=== PATIENT | female | born 1995 | race American Indian/Alaskan Native ===

== ENCOUNTER 2018-12-21 03:41 | Emergency (ER) | payer OTHER ==
[2018-12-21 04:26] LABS: Alanine Aminotransferase 17 units/L (7-56); Albumin 4.8 g/dL (3.9-5); BUN/Creatinine Ratio 13; Blood Urea Nitrogen 8 mg/dL (7-17); Calcium 9.7 mg/dL (8.4-10.2); Hemolysis Index 1
[2018-12-21 05:04] LABS: Hematocrit 38.8 % (30.3-42.9); Hemoglobin 13.3 gm/dl (10.1-14.3); Lymphocytes % (Auto) 28.3 % (13.4-35.0); Mean Corpuscular HGB Conc 34 % (30-34); Mean Corpuscular Volume 95 fl (79-97); Mean Platelet Volume 9.2 fl (6-12); Platelet Count 250 K/mm3 (140-440); Red Blood Count 4.07 M/mm3 (3.65-5.03); Red Cell Distribution Width 12.5 % (13.2-15.2)
[2018-12-21 05:05] LABS: Basophils # (Auto) 0.1 K/mm3 (0.0-0.1); Basophils % (Auto) 0.6 % (0.0-1.8); Eosinophils # (Auto) 3.1 K/mm3 (0.0-0.4); Eosinophils % (Auto) 3.1 % (0.0-4.3); Lymphocytes # (Auto) 2.3 K/mm3 (1.2-5.4); Monocytes # (Auto) 0.7 K/mm3 (0.0-0.8); Monocytes % (Auto) 8.9 % (0.0-7.3)
[2018-12-21 05:15] LABS: Bacteria,Urine 1+ /HPF (Negative); Bilirubin,Urine NEG (Negative); Blood,Urine SM (Negative); Color,Urine Yellow (Yellow); Mucus,Urine FEW /HPF; Protein,Urine <15 mg/dL mg/dL (Negative); Urobilinogen,Urine < 2.0 mg/dL (<2.0)
[2018-12-21] MEDS ORDERED: ZOFRAN ODT PO ONE ×2 (07:50→09:32)
--- NOTE | 2018-12-21 07:50 | Emergency Department Report ---
ED Abdominal Pain HPI - General Chief Complaint: Abdominal Pain Stated Complaint: BODY PAIN,ABD PAIN,NAUSEA Time Seen by Provider: 12/21/18 07:27 Source: patient Mode of arrival: Ambulatory Limitations: No Limitations - History of Present Illness Initial Comments: 23 yo female comes to ER with abrupt onset N/V last night. No vomiting in the ER for now 4 hours. She had diarrhea x 1. VSS. Also co l flank pain. No vag bleed or dc. Has taken nothing at home. Has had nothing like this before. PMH NONE PSH NONE HOME RX NONE POS THC MD Complaint: abdominal pain -: Sudden - Related Data Previous Rx's Medication Instructions Recorded Last Taken Type Ondansetron [Zofran Odt] 4 mg PO Q8HR PRN #10 tab.rapdis 12/21/18 Unknown Rx Allergies Allergy/AdvReac Type Severity Reaction Status Date / Time cucumber Allergy Unknown Verified 12/21/18 03:44 ED Review of Systems ROS: Stated complaint: BODY PAIN,ABD PAIN,NAUSEA Other details as noted in HPI Comment: All other systems reviewed and negative ED Past Medical Hx - Past Medical History Previous Medical History?: No - Surgical History Past Surgical History?: No - Family History Family history: no significant - Social History Smoking Status: Current Some Day Smoker Substance Use Type: Alcohol, Marijuana - Medications Home Medications: Home Medications Medication Instructions Recorded Confirmed Last Taken Type Ondansetron [Zofran Odt] 4 mg PO Q8HR PRN #10 tab.rapdis 12/21/18 Unknown Rx ED Physical Exam - General Limitations: No Limitations General appearance: alert - Head Head exam: Present: normocephalic - Eye Eye exam: Present: PERRL - ENT ENT exam: Present: normal exam - Neck Neck exam: Present: normal inspection - Respiratory Respiratory exam: Present: normal lung sounds bilaterally. Absent: respiratory distress - Cardiovascular Cardiovascular Exam: Present: regular rate - GI/Abdominal GI/Abdominal exam: Present: soft, normal bowel sounds. Absent: distended, tenderness, guarding, rebound, rigid, diminished bowel sounds, hyperactive bowel sounds, hypoactive bowel sounds - Rectal Rectal exam: Present: deferred - Extremities Exam Extremities exam: Present: normal inspection - Back Exam Back exam: Present: normal inspection, full ROM - Neurological Exam Neurological exam: Present: alert, oriented X3, CN II-XII intact, normal gait - Psychiatric Psychiatric exam: Present: normal affect, normal mood - Skin Skin exam: Present: warm, dry, intact ED Course Vital Signs 12/21/18 03:46 Temperature 97.6 F Pulse Rate 69 Respiratory 16 Rate Blood Pressure 120/80 O2 Sat by Pulse 100 Oximetry ED Medical Decision Making - Lab Data Result diagrams: 12/21/18 03:54 12/21/18 03:54 - Medical Decision Making Labs 12/21/18 12/21/18 12/21/18 03:54 03:54 03:54 WBC 8.2 RBC 4.07 Hgb 13.3 Hct 38.8 MCV 95 MCH 33 H MCHC 34 RDW 12.5 L Plt Count 250 Lymph % (Auto) 28.3 [place] % (Auto) 8.9 H Eos % (Auto) 3.1 Baso % (Auto) 0.6 Lymph # 2.3 [place] # 0.7 Eos # 3.1 H Baso # 0.1 Seg Neutrophils % 59.1 Seg Neutrophils # 4.9 Sodium 141 Potassium 3.4 L Chloride 101.3 Carbon Dioxide 24 Anion Gap 19 BUN 8 Creatinine 0.6 L Estimated GFR > 60 BUN/Creatinine Ratio 13 Glucose 103 H Calcium 9.7 Total Bilirubin 1.90 H AST 24 ALT 17 Alkaline Phosphatase 61 Total Protein 8.4 H Albumin 4.8 Albumin/Globulin Ratio 1.3 HCG, Qual Negative Urine Color Urine Turbidity Urine pH Ur Specific [place] Urine Protein Urine Glucose (UA) Urine Ketones Urine Blood Urine Nitrite Urine Bilirubin Urine Urobilinogen Ur Leukocyte Esterase Urine WBC (Auto) Urine RBC (Auto) U Epithel Cells (Auto) Urine Bacteria (Auto) Urine Mucus 12/21/18 04:27 WBC RBC Hgb Hct MCV MCH MCHC RDW Plt Count Lymph % (Auto) [place] % (Auto) Eos % (Auto) Baso % (Auto) Lymph # [place] # Eos # Baso # Seg Neutrophils % Seg Neutrophils # Sodium Potassium Chloride Carbon Dioxide Anion Gap BUN Creatinine Estimated GFR BUN/Creatinine Ratio Glucose Calcium Total Bilirubin AST ALT Alkaline Phosphatase Total Protein Albumin Albumin/Globulin Ratio HCG, Qual Urine Color Yellow Urine Turbidity Clear Urine pH 6.0 Ur Specific [place] 1.009 Urine Protein <15 mg/dl Urine Glucose (UA) Neg Urine Ketones 20 Urine Blood Sm Urine Nitrite Neg Urine Bilirubin Neg Urine Urobilinogen < 2.0 Ur Leukocyte Esterase Tr Urine WBC (Auto) 5.0 Urine RBC (Auto) 3.0 U Epithel Cells (Auto) 6.0 Urine Bacteria (Auto) 1+ Urine Mucus Few Vital Signs 12/21/18 03:46 Temperature 97.6 F Pulse Rate 69 Respiratory 16 Rate Blood Pressure 120/80 O2 Sat by Pulse 100 Oximetry ua noted upreg neg labs noted exam unremarkable no vomiting in ER Medicated for nausea. K replaced. PT TAKING PO, ambulatory and non toxic. WILL DC HOME WITH PCP FOLLOW UP. Pt verbalizes understanding of discharge plan of care. - Differential Diagnosis ro uti/preg/nathan./gastroenteritis/thc induced Critical care attestation.: If time is entered above; I have spent that time in minutes in the direct care of this critically ill patient, excluding procedure time. ED Disposition Clinical Impression: Nausea & vomiting, Hypokalemia Disposition: DC-01 TO HOME OR SELFCARE Is pt being admited?: No Does the pt Need Aspirin: No Condition: Stable Instructions: Acute Nausea and Vomiting (ED) Additional Instructions: diet as tolerated start bland and progress eat bananas today- they have potassium in them; and your blood potassium was low. hydrate well with water motrin or tylenol for pain med as ordered today follow up with pcp referral below avoid weed Prescriptions: Ondansetron [Zofran Odt] 4 mg PO Q8HR PRN #10 tab.rapdis PRN Reason: Vomiting Referrals: KAYLYN DAVIS MD [Primary Care Provider] - 3-5 Days KRISTINA MORALES MD [Staff Physician] - 3-5 Days Time of Disposition: 08:13
[2018-12-21] MEDS ORDERED: K-DUR PO ONE (07:59)
[2018-12-21] MEDS ORDERED: NACL 0.9% 1000 ML 1,000 ML IV ONE (08:16)
[2018-12-21 09:18] VITALS: BP 114/64
[2018-12-21] MEDS ORDERED: NORCO 5/325 PO ONE (09:33)
== END 2018-12-21 10:20 | disposition home or self-care (01) ==
LOC: ED 03:41
DX: E87.6 Hypokalemia (principal); F17.200 Nicotine dependence, unspecified, uncomplicated; F12.10 Cannabis abuse, uncomplicated; Z91.018 Allergy to other foods
CPT/HCPCS: 36415; 80053; 81001; 83690; 84703; 85025; 96360; 99283; J7030; Q0162

== ENCOUNTER 2019-02-01 00:14 | Emergency (ER) | payer SELFPAY ==
[2019-02-01 01:01] VITALS: BP 119/69
[2019-02-01] MEDS ORDERED: TYLENOL ONE (01:04)
[2019-02-01] MEDS ORDERED: ZOFRAN ODT ONE (01:04)
[2019-02-01] MEDS ORDERED: ZOFRAN ODT PO ONE (01:13)
[2019-02-01] MEDS ORDERED: TYLENOL PO ONE (01:14)
[2019-02-01 01:26] LABS: Basophils # (Auto) 0.1 K/mm3 (0.0-0.1); Basophils % (Auto) 0.4 % (0.0-1.8); Eosinophils # (Auto) 0.1 K/mm3 (0.0-0.4); Eosinophils % (Auto) 0.7 % (0.0-4.3); Hematocrit 40.4 % (30.3-42.9); Hemoglobin 13.6 gm/dl (10.1-14.3); Lymphocytes # (Auto) 1.1 K/mm3 (1.2-5.4); Lymphocytes % (Auto) 8.1 % (13.4-35.0); Mean Corpuscular HGB Conc 34 % (30-34); Mean Corpuscular Volume 96 fl (79-97); Monocytes # (Auto) 0.5 K/mm3 (0.0-0.8); Monocytes % (Auto) 3.7 % (0.0-7.3); Platelet Count 218 K/mm3 (140-440); Red Blood Count 4.24 M/mm3 (3.65-5.03); Red Cell Distribution Width 12.2 % (13.2-15.2)
[2019-02-01 01:50] LABS: Alanine Aminotransferase 8 units/L (7-56); Albumin 4.7 g/dL (3.9-5); BUN/Creatinine Ratio 16; Blood Urea Nitrogen 8 mg/dL (7-17); Calcium 9.8 mg/dL (8.4-10.2); Hemolysis Index 9
[2019-02-01 04:07] LABS: Bacteria,Urine 1+ /HPF (Negative); Bilirubin,Urine NEG (Negative); Blood,Urine NEG (Negative); Color,Urine Yellow (Yellow); Mucus,Urine 3+ /HPF
[2019-02-01] MEDS ORDERED: ZOFRAN IV ONE (04:51)
[2019-02-01] MEDS ORDERED: BENTYL IM ONE (04:51)
[2019-02-01] MEDS ORDERED: NACL 0.9% 1000 ML 1,000 ML IV ONE (04:51)
[2019-02-01] MEDS ORDERED: TORADOL IV ONE (04:51)
--- NOTE | 2019-02-01 06:33 | Cat Scan Report ---
CT abdomen pelvis wo con INDICATION: abd pain. TECHNIQUE: All CT scans at this location are performed using the following dose modulation technique: Automated exposure control. Helical slices were obtained through the abdomen and pelvis. No contrast was admini stered. COMPARISON: None available. FINDINGS: Abdomen: The lung bases are clear. Liver, spleen, pancreas, adrenal glands, and kidneys are unremarka ble. The aorta is normal in diameter. There is no obstruction, inflammation, or free air. There are n o abnormal fluid collections. Pelvis: The appendix is unremarkable. There is a small amount of free fluid in the dependent portion of the pelvis. Bowel is unremarkable. On review of bone windows, no acute osseous abnormalities are seen area IMPRESSION: 1. There is no obstruction, inflammation, or free air. There are no abnormal fluid collections. Signer Name: Zion Santana MD Signed: 02/01/2019 6:29 AM Workstation Name: [id number]
--- NOTE | 2019-02-01 06:40 | Emergency Department Report ---
ED Abdominal Pain HPI - General Chief Complaint: Nausea/Vomiting/Diarrhea Stated Complaint: NVD, SHARP SHOULDER PAIN Time Seen by Provider: 02/01/19 04:50 Source: patient Mode of arrival: Ambulatory Limitations: No Limitations - History of Present Illness Initial Comments: pt is a 23 y/o aaf who present for abd pain with n/v/d 4 days pt states subjective fever no fever noted in triage today, symptom are exacerbated by eating symptsoms are relieved by nothing last n/v this am, last po intake this am pain level is 3/10 at this time. MD Complaint: abdominal pain Onset/Timin -: days(s) Location: LLQ, RLQ Radiation: LLQ, RLQ Migration to: LLQ Severity scale (0 -10): 4 Quality: cramping, aching Consistency: intermittent Improves With: nothing Worsens With: eating Associated Symptoms: nausea, vomiting, diarrhea, fever. denies: chills, dysuria , melena, hematuria - Related Data LMP Date: 01/15/19 Previous Rx's Medication Instructions Recorded Last Taken Type Ondansetron [Zofran Odt] 4 mg PO Q8HR PRN #10 tab.rapdis 12/21/18 Unknown Rx Dicyclomine [Bentyl] 10 mg PO QID PRN #40 capsule 02/01/19 Unknown Rx Ondansetron [Zofran Odt] 4 mg PO Q8HR #12 tab.rapdis 02/01/19 Unknown Rx cephALEXin [Keflex] 500 mg PO Q12HR 7 Days #14 cap 02/01/19 Unknown Rx Allergies Allergy/AdvReac Type Severity Reaction Status Date / Time cucumber Allergy Unknown Verified 12/21/18 03:44 ED Review of Systems ROS: Stated complaint: NVD, SHARP SHOULDER PAIN Other details as noted in HPI Constitutional: chills, fever Eyes: denies: eye pain, eye discharge, vision change ENT: as per HPI Respiratory: denies: cough, shortness of breath, wheezing Cardiovascular: denies: chest pain, palpitations Endocrine: no symptoms reported Gastrointestinal: abdominal pain, nausea, vomiting, diarrhea. denies: constipation, hematemesis, melena, hematochezia Genitourinary: denies: urgency, dysuria, frequency, hematuria, discharge, dyspareunia Musculoskeletal: as per HPI. denies: back pain Skin: denies: rash, lesions Neurological: denies: headache, weakness, paresthesias Psychiatric: denies: anxiety, depression Hematological/Lymphatic: denies: easy bleeding, easy bruising ED Past Medical Hx - Past Medical History Previous Medical History?: No - Social History Smoking Status: Never Smoker - Medications Home Medications: Home Medications Medication Instructions Recorded Confirmed Last Taken Type Ondansetron [Zofran Odt] 4 mg PO Q8HR PRN #10 tab.rapdis 12/21/18 Unknown Rx Dicyclomine [Bentyl] 10 mg PO QID PRN #40 capsule 02/01/19 Unknown Rx Ondansetron [Zofran Odt] 4 mg PO Q8HR #12 tab.rapdis 02/01/19 Unknown Rx cephALEXin [Keflex] 500 mg PO Q12HR 7 Days #14 cap 02/01/19 Unknown Rx ED Physical Exam - General Limitations: No Limitations General appearance: alert, in no apparent distress - Head Head exam: Present: atraumatic, normocephalic - Eye Eye exam: Present: normal appearance, PERRL, EOMI Pupils: Present: normal accommodation - ENT ENT exam: Present: normal orophraynx, mucous membranes moist - Neck Neck exam: Present: normal inspection, full ROM. Absent: tenderness, lymphadenopathy - Respiratory Respiratory exam: Present: normal lung sounds bilaterally. Absent: respiratory distress, wheezes, stridor, chest wall tenderness - Cardiovascular Cardiovascular Exam: Present: regular rate, normal rhythm, normal heart sounds. Absent: systolic murmur, diastolic murmur, rubs, gallop - GI/Abdominal GI/Abdominal exam: Present: soft, normal bowel sounds. Absent: distended, tenderness, guarding, rebound, rigid, bruit, hernia - Rectal Rectal exam: Present: deferred - Extremities Exam Extremities exam: Present: normal inspection, full ROM, normal capillary refill. Absent: tenderness - Back Exam Back exam: Present: normal inspection, full ROM. Absent: tenderness, CVA tenderness (R), CVA tenderness (L), muscle spasm, paraspinal tenderness, rash noted - Neurological Exam Neurological exam: Present: alert, oriented X3, CN II-XII intact, normal gait - Psychiatric Psychiatric exam: Present: normal affect, normal mood - Skin Skin exam: Present: warm, dry, intact, normal color. Absent: rash ED Course Vital Signs 02/01/19 00:55 Temperature 98.3 F Pulse Rate 66 Respiratory 18 Rate Blood Pressure 119/69 O2 Sat by Pulse 98 Oximetry ED Medical Decision Making - Lab Data Result diagrams: 02/01/19 01:03 02/01/19 01:03 Labs 02/01/19 02/01/19 02/01/19 01:03 01:03 01:03 WBC 14.2 H RBC 4.24 Hgb 13.6 Hct 40.4 MCV 96 MCH 32 MCHC 34 RDW 12.2 L Plt Count 218 Lymph % (Auto) 8.1 L [place] % (Auto) 3.7 Eos % (Auto) 0.7 Baso % (Auto) 0.4 Lymph # 1.1 L [place] # 0.5 Eos # 0.1 Baso # 0.1 Seg Neutrophils % 87.1 H Seg Neutrophils # 12.4 H Sodium 142 Potassium 3.7 Chloride 102.5 Carbon Dioxide 26 Anion Gap 17 BUN 8 Creatinine 0.5 L Estimated GFR > 60 BUN/Creatinine Ratio 16 Glucose 96 Calcium 9.8 Total Bilirubin 1.60 H AST 16 ALT 8 Alkaline Phosphatase 55 Total Protein 8.1 Albumin 4.7 Albumin/Globulin Ratio 1.4 Lipase HCG, Quant < 2 Urine Color Urine Turbidity Urine pH Ur Specific [place] Urine Protein Urine Glucose (UA) Urine Ketones Urine Blood Urine Nitrite Urine Bilirubin Urine Urobilinogen Ur Leukocyte Esterase Urine WBC (Auto) Urine RBC (Auto) U Epithel Cells (Auto) Urine Bacteria (Auto) Urine Mucus 02/01/19 02/01/19 03:38 05:15 WBC RBC Hgb Hct MCV MCH MCHC RDW Plt Count Lymph % (Auto) [place] % (Auto) Eos % (Auto) Baso % (Auto) Lymph # [place] # Eos # Baso # Seg Neutrophils % Seg Neutrophils # Sodium Potassium Chloride Carbon Dioxide Anion Gap BUN Creatinine Estimated GFR BUN/Creatinine Ratio Glucose Calcium Total Bilirubin AST ALT Alkaline Phosphatase Total Protein Albumin Albumin/Globulin Ratio Lipase 12 L HCG, Quant Urine Color Yellow Urine Turbidity Slightly-cloudy Urine pH 6.0 Ur Specific [place] 1.026 Urine Protein 30 mg/dl Urine Glucose (UA) Neg Urine Ketones 80 Urine Blood Neg Urine Nitrite Neg Urine Bilirubin Neg Urine Urobilinogen 2.0 Ur Leukocyte Esterase Neg Urine WBC (Auto) 4.0 Urine RBC (Auto) 12.0 U Epithel Cells (Auto) 11.0 Urine Bacteria (Auto) 1+ Urine Mucus 3+ - Radiology Data Radiology results: report reviewed, image reviewed Ordering Physician: KRIS MADSEN NP Date of Service: 02/01/19 Procedure(s): CT abdomen pelvis wo con Accession Number(s): [id number] cc: KRIS MADSEN NP CT abdomen pelvis wo con INDICATION: abd pain. TECHNIQUE: All CT scans at this location are performed using the following dose modulation technique: Automated exposure control. Helical slices were obtained through the abdomen and pelvis. No contrast was administered. COMPARISON: None available. FINDINGS: Abdomen: The lung bases are clear. Liver, spleen, pancreas, adrenal glands, and kidneys are unremarkable. The aorta is normal in diameter. There is no obstruction, inflammation, or free air. There are no abnormal fluid collections. Pelvis: The appendix is unremarkable. There is a small amount of free fluid in t he dependent portion of the pelvis. Bowel is unremarkable. On review of bone windows, no acute osseous abnormalities are seen area IMPRESSION: 1. There is no obstruction, inflammation, or free air. There are no abnormal fluid collections. Signer Name: Zion Santana MD Signed: 02/01/2019 6:29 AM Workstation Name: [id number] Transcribed By: SS Dictated By: Zion Santana MD Electronically Authenticated By: Zion Santana MD Signed Date/Time: 02/01/19628 DD/ 3 TD/TT: - Medical Decision Making symptoms are improved with medications given in ed, there is no fever, wbc: 14.1 like related to volume status, sosa jung, follow up with pcp in 2-3 days retun to emergency if symptoms worsen. pt verbalized agreement and understanding of same. Critical care attestation.: If time is entered above; I have spent that time in minutes in the direct care of this critically ill patient, excluding procedure time. ED Disposition Clinical Impression: Abdominal pain Qualifiers: Abdominal location: lower abdomen, unspecified Qualified Code(s): R10.30 - Lower abdominal pain, unspecified Nausea and vomiting Qualifiers: Vomiting type: unspecified Vomiting Intractability: non-intractable Qualified Code(s): R11.2 - Nausea with vomiting, unspecified Disposition: DC- TO HOME OR SELFCARE Is pt being admited?: No Does the pt Need Aspirin: No Condition: Stable Instructions: Acute Nausea and Vomiting (ED), Dehydration (ED) Prescriptions: Dicyclomine [Bentyl] 10 mg PO QID PRN #40 capsule PRN Reason: abdominal spasm cephALEXin [Keflex] 500 mg PO Q12HR 7 Days #14 cap Ondansetron [Zofran Odt] 4 mg PO Q8HR #12 tab.yashdis Referrals: [facility] [Outside] - 3-5 Days Forms: Work/School Release Form(ED) Time of Disposition: 06:52
== END 2019-02-01 07:04 | disposition home or self-care (01) ==
LOC: ED 00:14
DX: R10.32 Left lower quadrant pain (principal); R10.31 Right lower quadrant pain; R11.2 Nausea with vomiting, unspecified; Z79.899 Other long term (current) drug therapy; Z91.018 Allergy to other foods
CPT/HCPCS: 36415; 74176; 80053; 81001; 83690; 84702; 85025; 96361; 96372; 96374; 96375; 99284; J0500; J1885; J2405; J7030; Q0162

== ENCOUNTER 2019-03-30 23:43 | Emergency (ER) | payer SELFPAY ==
[2019-03-31 00:21] VITALS: BP 112/74
[2019-03-31 00:38] LABS: Basophils # (Auto) 0.1 K/mm3 (0.0-0.1); Basophils % (Auto) 0.5 % (0.0-1.8); Eosinophils # (Auto) 0.1 K/mm3 (0.0-0.4); Eosinophils % (Auto) 0.4 % (0.0-4.3); Lymphocytes # (Auto) 1.8 K/mm3 (1.2-5.4); Lymphocytes % (Auto) 13.7 % (13.4-35.0); Mean Corpuscular HGB Conc 33 % (30-34); Mean Corpuscular Volume 95 fl (79-97); Monocytes # (Auto) 0.9 K/mm3 (0.0-0.8); Monocytes % (Auto) 6.8 % (0.0-7.3)
[2019-03-31 00:56] LABS: BUN/Creatinine Ratio 15; Blood Urea Nitrogen 9 mg/dL (7-17); Calcium 9.8 mg/dL (8.4-10.2); Hemolysis Index 11
[2019-03-31 00:59] LABS: Platelet Count 219 K/mm3 (140-440)
[2019-03-31] MEDS ORDERED: SODIUM CHLORIDE 0.9% 1000 ML 1,000 ML IV ONE (01:08)
--- NOTE | 2019-03-31 01:09 | Emergency Department Report ---
ED General Adult HPI - General Chief complaint: Dizziness Stated complaint: N,V, BACK PAIN, DIZZINESS Time Seen by Provider: 03/31/19 00:59 Source: patient Mode of arrival: Ambulatory Limitations: No Limitations - History of Present Illness Initial comments: Ms Hall is a 23 y/o aaf who presents for recurring constipation. Feels dizziness with n/v for past 3 days. Last BM today , scant amount firm. pt also endorse daily THC use. There is no fever or chills , last n/v this am, pt is tolerating po intake at this time. There is no cp , no sob, back pain, LMP: 2 weeks ago. pt denies pos for no sexually active with males. smptoms currently rated as 4/10 Onset/Timin -: days(s) Location: abdomen Radiation: non-radiation Severity scale (0 -10): 4 Quality: aching Consistency: intermittent Improves with: rest Worsens with: movement Associated Symptoms: nausea/vomiting Treatments Prior to Arrival: none - Related Data Previous Rx's Medication Instructions Recorded Last Taken Type Ondansetron [Zofran Odt] 4 mg PO Q8HR PRN #10 tab.rapdis 12/21/18 Unknown Rx Dicyclomine [Bentyl] 10 mg PO QID PRN #40 capsule 02/01/19 Unknown Rx Ondansetron [Zofran Odt] 4 mg PO Q8HR #12 tab.rapdis 02/01/19 Unknown Rx cephALEXin [Keflex] 500 mg PO Q12HR 7 Days #14 cap 02/01/19 Unknown Rx Bisacodyl [Dulcolax suppos] 10 mg AL ONCE PRN #5 supp.rect 03/31/19 Unknown Rx Polyethylene Glycol 3350 [Miralax 17 gm PO BID PRN #14 packet 03/31/19 Unknown Rx 3350] Allergies Allergy/AdvReac Type Severity Reaction Status Date / Time cucumber Allergy Unknown Verified 12/21/18 03:44 ED Review of Systems ROS: Stated complaint: N,V, BACK PAIN, DIZZINESS Other details as noted in HPI Constitutional: denies: chills, fever Eyes: denies: eye pain, eye discharge, vision change ENT: denies: ear pain, throat pain Respiratory: denies: cough, shortness of breath, wheezing Cardiovascular: denies: chest pain, palpitations Endocrine: no symptoms reported Gastrointestinal: abdominal pain, nausea, vomiting, constipation Genitourinary: denies: urgency, dysuria, discharge Musculoskeletal: denies: back pain, joint swelling, arthralgia Skin: denies: rash, lesions Neurological: denies: headache, weakness, numbness, paresthesias, confusion, vertigo Psychiatric: as per HPI Hematological/Lymphatic: denies: easy bleeding, easy bruising ED Past Medical Hx - Past Medical History Previous Medical History?: No - Surgical History Past Surgical History?: Yes Additional Surgical History: Left ear - Social History Smoking Status: Never Smoker Substance Use Type: Marijuana - Medications Home Medications: Home Medications Medication Instructions Recorded Confirmed Last Taken Type Ondansetron [Zofran Odt] 4 mg PO Q8HR PRN #10 tab.rapdis 12/21/18 Unknown Rx Dicyclomine [Bentyl] 10 mg PO QID PRN #40 capsule 02/01/19 Unknown Rx Ondansetron [Zofran Odt] 4 mg PO Q8HR #12 tab.rapdis 02/01/19 Unknown Rx cephALEXin [Keflex] 500 mg PO Q12HR 7 Days #14 cap 02/01/19 Unknown Rx Bisacodyl [Dulcolax suppos] 10 mg AL ONCE PRN #5 supp.rect 03/31/19 Unknown Rx Polyethylene Glycol 3350 [Miralax 17 gm PO BID PRN #14 packet 03/31/19 Unknown Rx 3350] ED Physical Exam - General Limitations: No Limitations General appearance: alert, in no apparent distress - Head Head exam: Present: atraumatic, normocephalic - Eye Eye exam: Present: normal appearance, PERRL, EOMI Pupils: Present: normal accommodation - ENT ENT exam: Present: normal orophraynx, mucous membranes moist, TM's normal bilaterally, normal external ear exam - Neck Neck exam: Present: normal inspection, full ROM. Absent: tenderness - Respiratory Respiratory exam: Present: normal lung sounds bilaterally. Absent: respiratory distress, wheezes, stridor, chest wall tenderness - Cardiovascular Cardiovascular Exam: Present: regular rate, normal rhythm, normal heart sounds. Absent: systolic murmur, diastolic murmur, rubs, gallop - GI/Abdominal GI/Abdominal exam: Present: soft, tenderness (bilat lower abd ), normal bowel sounds. Absent: distended, guarding, rebound, rigid, bruit, hernia - Rectal Rectal exam: Present: deferred - Extremities Exam Extremities exam: Present: normal inspection, full ROM. Absent: tenderness - Back Exam Back exam: Present: normal inspection, full ROM, tenderness, CVA tenderness (R). Absent: CVA tenderness (L), muscle spasm, paraspinal tenderness, vertebral tenderness, rash noted - Neurological Exam Neurological exam: Present: alert, oriented X3, CN II-XII intact, normal gait - Psychiatric Psychiatric exam: Present: normal affect, normal mood - Skin Skin exam: Present: warm, dry, intact, normal color. Absent: rash ED Course Vital Signs 03/31/19 00:12 Temperature 99.1 F Pulse Rate 89 Respiratory 18 Rate Blood Pressure 112/74 O2 Sat by Pulse 99 Oximetry ED Medical Decision Making - Lab Data Result diagrams: 03/31/19 00:24 03/31/19 00:24 - Radiology Data Radiology results: report reviewed, image reviewed Ordering Physician: KRIS MADSEN NP Date of Service: 03/31/19 Procedure(s): XR abdomen 1V ap Accession Number(s): [id number] cc: KRIS MADSEN NP Fluoro Time In Minutes: ABDOMEN 1 VIEW(S) INDICATION: abd pain COMPARISON: Prior CT abdomen/pelvis, 02/01/2019 FINDINGS: Bowel gas pattern: Within normal limits. No dilated loops of large or small b owel. Free air: None. Calcified gallstones: None seen. Calcified urinary tract calculi: None seen. Additional Findings: None. Skeletal structures: No acute abnormality. IMPRESSION: 1. No acute findings. Signer Name: Maureen Ballard MD Signed: 03/31/2019 1:38 AM Workstation Name: [id number] Transcribed By: JR Dictated By: Maureen Ballard MD Electronically Authenticated By: Maureen Ballard MD Signed Date/Time: 03/31/19137 DD/ 6 TD/TT: - Medical Decision Making all labs normal, plan: miralax prn, dulcolax prn, stop thc abuse, follow up with pcp as needed , pt verbalized agreement and understanding of same. pt dc'd to home in stable condition at this time. Critical care attestation.: If time is entered above; I have spent that time in minutes in the direct care of this critically ill patient, excluding procedure time. ED Disposition Clinical Impression: Abdominal pain Qualifiers: Abdominal location: lower abdomen, unspecified Qualified Code(s): R10.30 - Lower abdominal pain, unspecified Constipation Qualifiers: Constipation type: unspecified constipation type Qualified Code(s): K59.00 - Constipation, unspecified Disposition: TO HOME OR SELFCARE Is pt being admited?: No Does the pt Need Aspirin: No Condition: Stable Instructions: Constipation (ED), High Fiber Diet (ED), Cannabis Abuse (ED) Prescriptions: Bisacodyl [Dulcolax suppos] 10 mg AL ONCE PRN #5 supp.rect PRN Reason: constipation Polyethylene Glycol 3350 [Miralax 3350] 17 gm PO BID PRN #14 packet PRN Reason: Constipation Referrals: [facility] [Provider Group] - 3-5 Days URDDY PARKINSON MD [Staff Physician] - 3-5 Days Forms: Work/School Release Form(ED) Time of Disposition: 03:10
--- NOTE | 2019-03-31 01:42 | XRay Report ---
ABDOMEN 1 VIEW(S) INDICATION: abd pain COMPARISON: Prior CT abdomen/pelvis, 02/01/2019 FINDINGS: Bowel gas pattern: Within normal limits. No dilated loops of large or small bowel. Free air: None. Calcified gallstones: None seen. Calcified urinary tract calculi: None seen. Additional Findings: None. Skeletal structures: No acute abnormality. IMPRESSION: 1. No acute findings. Signer Name: Maureen Ballard MD Signed: 03/31/2019 1:38 AM Workstation Name: [id number]
[2019-03-31] MEDS ORDERED: KETOROLAC 30 MG/1 ML INJ IV ONE (02:01)
[2019-03-31 02:52] LABS: Bilirubin,Urine NEG (Negative); Blood,Urine NEG (Negative); Color,Urine Amber (Yellow); Mucus,Urine 3+ /HPF; Urobilinogen,Urine < 2.0 mg/dL (<2.0)
== END 2019-03-31 03:20 | disposition home or self-care (01) ==
LOC: ED 23:43
DX: K59.00 Constipation, unspecified (principal); R42 Dizziness and giddiness; F12.10 Cannabis abuse, uncomplicated; Z91.018 Allergy to other foods
CPT/HCPCS: 36415; 74018; 80048; 81001; 84703; 85025; 96361; 96374; 99284; J1885; J7030